=== PATIENT | female | born 1985 | race Hispanic/Latino ===

== ENCOUNTER 2018-09-08 11:08 | Emergency (ER) | payer OTHER ==
[2018-09-08] MEDS ORDERED: ACETAMINOPHEN 325 MG TAB ONE (11:50)
[2018-09-08] MEDS ORDERED: METOCLOPRAMIDE 10 MG TABLET ONE (11:50)
[2018-09-08 11:59] LABS: HCG,QUAL RESULT NEGATIVE (NEGATIVE)
[2018-09-08 12:00] LABS: APPEARANCE,URINE Clear (CLEAR); BILIRUBIN,URINE Negative (NEGATIVE); COLOR,URINE Yellow (YELLOW); GLUCOSE, URINE (UA) Negative (NEGATIVE); KETONES,URINE Negative (NEGATIVE); LEUKOCYTE ESTERASE ,URINE Negative (NEGATIVE); NITRATE,URINE Negative (NEGATIVE); OCCULT BLOOD,URINE Small (NEGATIVE); PH,URINE 6.5 (5.0-8.0); PROTEIN,URINE Negative (NEGATIVE); UROBILINOGEN,URINE 0.2 mg/dL (0.2-1.0)
[2018-09-08 12:15] LABS: BACTERIA,URINE Rare /HPF (None Seen); RBC,URINE 0-1 /HPF (0-1); WBC,URINE None Seen /HPF (0-1)
[2018-09-08] MEDS ORDERED: KETOROLAC TROMETHAMINE 15MG/ML ONE (12:16)
[2018-09-08 13:00] LABS: BASOPHILS % (AUTO) 0.6 % (0.0-5.0); HEMATOCRIT 38.5 % (36-48); LYMPHOCYTES % (AUTO) 19.6 % (21.0-51.0); MEAN CORPUSCULAR HEMOGLOBIN 29.9 pg (27.0-33.0); MEAN CORPUSCULAR HGB CONC 35.1 g/dL (32.0-36.0); MONOCYTES % (AUTO) 5.2 % (3.0-13.0); NEUTROPHILS % (AUTO) 73.6 % (40.0-77.0); PLATELET COUNT (AUTO) 312 K/uL (130-400); RED BLOOD CELL COUNT(AUTO) 4.52 MIL/uL (4.00-5.50); RED CELL DISTRIBUTION WIDTH 12.8 % (11.0-15.5); WHITE BLOOD COUNT (AUTO) 9.9 K/uL (4.8-10.8)
[2018-09-08 13:11] LABS: CREATININE 0.7 mg/dL (0.5-1.5); POTASSIUM 3.3 mmol/L (3.5-5.1)
== END 2018-09-08 13:58 | disposition home or self-care (01) ==
LOC: EDH 11:08
DX: R51 Headache (principal); R42 Dizziness and giddiness; R10.9 Unspecified abdominal pain; H53.8 Other visual disturbances
CPT/HCPCS: 36415; 80048; 81001; 81025; 85025; 87804 ×2; 93005; 96372; 99285; J1885